=== PATIENT | female | born 1930 | race Caucasian/White ===

== ENCOUNTER 2021-01-21 10:24 | Inpatient (IN) | payer OTHER, MEDICARE ==
[2021-01-21 12:35] LABS: BASO % 0.2 % (0-2.0); EOS % 0.1 % (0-4.5); LYMPH % 5.8 % (8-40); MCHC 34.2 g/dl (32.0-36.0); MEAN CELL VOLUME 102.3 fl (80-96); MEAN PLT VOLUME 8.4 fl (7.5-11.1); MONO % 6.9 % (3.8-10.2); PLATELET COUNT 236 10^3/uL (134-434); RBC 3.13 M/mm3 (3.60-5.2); RDW 13.6 % (11.6-15.6); URINE APPEARANCE Clear; URINE BILIRUBIN Negative (NEGATIVE); URINE COLOR Yellow; URINE GLUCOSE (UA) Negative (NEGATIVE); URINE KETONE Negative (NEGATIVE); URINE LEUK ESTERASE Negative (NEGATIVE); URINE NITRITE Negative (NEGATIVE); URINE PROTEIN Trace (NEGATIVE); URINE UROBILINOGEN 0.2 mg/dL (0.2-1.0); WHITE BLOOD COUNT 9.8 K/mm3 (4.0-10.0)
[2021-01-21 12:52] LABS: ALBUMIN 3.2 g/dl (3.4-5.0); CALCIUM 9.7 mg/dL (8.5-10.1)
[2021-01-21 12:53] LABS: BLOOD UREA NITROGEN 33.1 mg/dL (7-18)
[2021-01-21 12:56] LABS: CREATININE 0.9 mg/dL (0.55-1.3)
[2021-01-21 12:57] LABS: BILIRUBIN,TOTAL 0.5 mg/dL (0.2-1); TOT PROT 7.5 g/dl (6.4-8.2)
[2021-01-21 13:01] LABS: N-TERMINAL BNP 1596.3 pg/ml (5-450)
[2021-01-21] MEDS ORDERED: LACTATED RINGERS SOLUTION 1,000 ML/1,000 ML INFUS.BAG IV STA (15:35)
[2021-01-21] MEDS ORDERED: D5-1/2NS+10 MEQ KCL - 10 MEQ/1,000 ML INFUS.BAG IV SCH (16:00)
[2021-01-21] MEDS: FUROSEMIDE 40 MG TABLET (FP) PO SCH (17:00)
[2021-01-21] MEDS: PANTOPRAZOLE 40 MG TABLET PO SCH (17:00)
[2021-01-21] MEDS ORDERED: FUROSEMIDE 40 MG TABLET (FP) ONE (17:13)
[2021-01-21] MEDS ORDERED: PANTOPRAZOLE 40 MG TABLET ONE (17:13)
[2021-01-21] MEDS: APIXABAN 2.5 MG TABLET PO SCH (21:44)
[2021-01-21] MEDS: POLYETHYLENE GLYCOL (HEALTHYLAX) 3350 17 GM PACKET PO SCH (21:46)
[2021-01-21] MEDS ORDERED: BACITRACIN 15 GM TUBE TOPICAL OINTMENT TP SCH (22:00)
[2021-01-22 01:39] VITALS: BMI 39.4
[2021-01-22 08:49] LABS: BASO % 0.4 % (0-2.0); EOS % 2.1 % (0-4.5); HEMATOCRIT 31.9 % (32.4-45.2); HEMOGLOBIN 10.7 GM/dL (10.7-15.3); LYMPH % 11.7 % (8-40); MCH 34.6 pg (25.7-33.7); MCHC 33.6 g/dl (32.0-36.0); MEAN PLT VOLUME 8.6 fl (7.5-11.1); MONO % 8.2 % (3.8-10.2); NEUT % 77.6 % (42.8-82.8); PLATELET COUNT 214 10^3/uL (134-434); RDW 13.8 % (11.6-15.6); WHITE BLOOD COUNT 7.3 K/mm3 (4.0-10.0)
[2021-01-22 09:01] LABS: CALCIUM 9.3 mg/dL (8.5-10.1)
[2021-01-22 09:05] LABS: CREATININE 0.8 mg/dL (0.55-1.3)
[2021-01-22] MEDS: PANTOPRAZOLE 40 MG TABLET PO SCH (09:21)
[2021-01-22] MEDS: POLYETHYLENE GLYCOL (HEALTHYLAX) 3350 17 GM PACKET PO SCH ×4 (09:21→21:45)
[2021-01-22] MEDS: APIXABAN 2.5 MG TABLET PO SCH (09:21)
[2021-01-22] MEDS: FUROSEMIDE 40 MG TABLET (FP) PO SCH (09:22)
[2021-01-22] MEDS: BACITRACIN 15 GM TUBE TOPICAL OINTMENT TP SCH (09:22)
[2021-01-22] MEDS ORDERED: IRON SUCROSE INJECTION 200 MG in SODIUM CHLORIDE 90 ML IVPB ONE (12:00)
[2021-01-22] MEDS ORDERED: PT OWN MED DRAWER 7, Y5N ONE ×3 (13:54→16:08)
[2021-01-22] MEDS: D5-1/2NS+10 MEQ KCL - 10 MEQ/1,000 ML INFUS.BAG IV SCH ×2 (16:19→23:40)
[2021-01-22] MEDS: CYANOCOBALAMIN 1,000 MCG TABLET (FP) PO SCH (16:19)
[2021-01-23] MEDS: POLYETHYLENE GLYCOL (HEALTHYLAX) 3350 17 GM PACKET PO SCH ×3 (06:09→21:35)
[2021-01-23 08:54] LABS: BASO % 0.5 % (0-2.0); EOS % 4.7 % (0-4.5); HEMATOCRIT 32.8 % (32.4-45.2); HEMOGLOBIN 11.1 GM/dL (10.7-15.3); LYMPH % 20.2 % (8-40); MCH 34.8 pg (25.7-33.7); MCHC 33.9 g/dl (32.0-36.0); MEAN CELL VOLUME 102.9 fl (80-96); MEAN PLT VOLUME 8.5 fl (7.5-11.1); MONO % 8.4 % (3.8-10.2); NEUT % 66.2 % (42.8-82.8); PLATELET COUNT 245 10^3/uL (134-434); RBC 3.19 M/mm3 (3.60-5.2); RDW 13.2 % (11.6-15.6); WHITE BLOOD COUNT 5.4 K/mm3 (4.0-10.0)
[2021-01-23] MEDS ORDERED: DEXTROSE 5%-0.45% SALINE 1,000 ML IV SCH ×3 (09:00→19:22)
[2021-01-23 09:23] LABS: BLOOD UREA NITROGEN 20.7 mg/dL (7-18); CALCIUM 9.3 mg/dL (8.5-10.1)
[2021-01-23 09:26] LABS: CREATININE 0.7 mg/dL (0.55-1.3)
[2021-01-23] MEDS ORDERED: PT OWN MED DRAWER 7, Y5N ONE (10:04)
[2021-01-23] MEDS: CYANOCOBALAMIN 1,000 MCG TABLET (FP) PO SCH (10:06)
[2021-01-23] MEDS: PANTOPRAZOLE 40 MG TABLET PO SCH (10:06)
[2021-01-23] MEDS: FUROSEMIDE 40 MG TABLET (FP) PO SCH (10:06)
[2021-01-23] MEDS: BACITRACIN 15 GM TUBE TOPICAL OINTMENT TP SCH (10:06)
[2021-01-23] MEDS ORDERED: ACETAMINOPHEN 1000 MG/100 ML VIAL (NON FORMULARY) IVPB ONE ×2 (10:12→13:15)
[2021-01-23] MEDS ORDERED: NEOSTIGMINE METHYLSULFATE 0.5 MG/1 ML - 10 ML MDV IVPUSH ONE ×2 (19:43)
[2021-01-24] MEDS ORDERED: NEOSTIGMINE METHYLSULFATE 0.5 MG/1 ML - 10 ML MDV IVPUSH ONE (06:10)
[2021-01-24] MEDS: POLYETHYLENE GLYCOL (HEALTHYLAX) 3350 17 GM PACKET PO SCH ×3 (06:11→23:13)
[2021-01-24 09:26] LABS: BASO % 0.5 % (0-2.0); EOS % 2.6 % (0-4.5); HEMATOCRIT 33.3 % (32.4-45.2); HEMOGLOBIN 11.2 GM/dL (10.7-15.3); LYMPH % 15.7 % (8-40); MCH 34.8 pg (25.7-33.7); MCHC 33.8 g/dl (32.0-36.0); MEAN CELL VOLUME 103.1 fl (80-96); MEAN PLT VOLUME 8.5 fl (7.5-11.1); MONO % 7.6 % (3.8-10.2); NEUT % 73.6 % (42.8-82.8); PLATELET COUNT 268 10^3/uL (134-434); RBC 3.23 M/mm3 (3.60-5.2); RDW 13.3 % (11.6-15.6); WHITE BLOOD COUNT 6.7 K/mm3 (4.0-10.0)
[2021-01-24 10:05] LABS: CALCIUM 9.4 mg/dL (8.5-10.1)
[2021-01-24 10:06] LABS: BLOOD UREA NITROGEN 18.7 mg/dL (7-18)
[2021-01-24 10:09] LABS: CREATININE 0.7 mg/dL (0.55-1.3)
[2021-01-24] MEDS ORDERED: PT OWN MED DRAWER 7, Y5N ONE (10:20)
[2021-01-24] MEDS: CYANOCOBALAMIN 1,000 MCG TABLET (FP) PO SCH (10:21)
[2021-01-24] MEDS: BACITRACIN 15 GM TUBE TOPICAL OINTMENT TP SCH (10:21)
[2021-01-24] MEDS: PANTOPRAZOLE 40 MG TABLET PO SCH (10:21)
[2021-01-24] MEDS: FUROSEMIDE 40 MG TABLET (FP) PO SCH (10:21)
[2021-01-24] MEDS ORDERED: D5-1/2NS+10 MEQ KCL - 10 MEQ/1,000 ML INFUS.BAG IV SCH (15:45)
[2021-01-24] MEDS: POTASSIUM CHLORIDE 10 MEQ in DEXTROSE 5%-NORMAL SALINE 1,000 ML IVPB SCH (18:52)
[2021-01-25] MEDS ORDERED: NEOSTIGMINE METHYLSULFATE 0.5 MG/1 ML - 10 ML MDV IVPUSH ONE ×2 (05:47→11:30)
[2021-01-25] MEDS: POLYETHYLENE GLYCOL (HEALTHYLAX) 3350 17 GM PACKET PO SCH ×3 (06:46→22:17)
[2021-01-25 08:19] LABS: BASO % 0.4 % (0-2.0); EOS % 2.1 % (0-4.5); HEMATOCRIT 34.5 % (32.4-45.2); HEMOGLOBIN 11.8 GM/dL (10.7-15.3); LYMPH % 18.7 % (8-40); MCH 35.1 pg (25.7-33.7); MCHC 34.2 g/dl (32.0-36.0); MEAN CELL VOLUME 102.6 fl (80-96); MEAN PLT VOLUME 8.4 fl (7.5-11.1); MONO % 9.2 % (3.8-10.2); NEUT % 69.6 % (42.8-82.8); PLATELET COUNT 263 10^3/uL (134-434); RBC 3.37 M/mm3 (3.60-5.2); RDW 13.2 % (11.6-15.6); WHITE BLOOD COUNT 6.5 K/mm3 (4.0-10.0)
[2021-01-25 08:46] LABS: CALCIUM 9.6 mg/dL (8.5-10.1)
[2021-01-25 08:47] LABS: BLOOD UREA NITROGEN 16.7 mg/dL (7-18)
[2021-01-25 08:50] LABS: CREATININE 0.8 mg/dL (0.55-1.3)
[2021-01-25] MEDS: PANTOPRAZOLE 40 MG TABLET PO SCH (11:25)
[2021-01-25] MEDS: BACITRACIN 15 GM TUBE TOPICAL OINTMENT TP SCH (11:26)
[2021-01-25] MEDS: FUROSEMIDE 40 MG TABLET (FP) PO SCH (11:26)
[2021-01-25] MEDS ORDERED: ATROPINE SULFATE 1 MG/10 ML DISP.SYRIN ONE (12:48)
[2021-01-25] MEDS: CYANOCOBALAMIN 1,000 MCG TABLET (FP) PO SCH (12:51)
[2021-01-25] MEDS ORDERED: POTASSIUM CHLORIDE 10 MEQ in DEXTROSE 5%-NORMAL SALINE 1,000 ML IVPB SCH (16:04)
[2021-01-25] MEDS: POTASSIUM CHLORIDE 10 MEQ in DEXTROSE 5%-NORMAL SALINE 1,000 ML IVPB SCH ×2 (17:25→18:34)
[2021-01-26] MEDS: POLYETHYLENE GLYCOL (HEALTHYLAX) 3350 17 GM PACKET PO SCH ×3 (06:39→22:34)
[2021-01-26 07:57] LABS: BASO % 0.7 % (0-2.0); EOS % 3.5 % (0-4.5); HEMATOCRIT 35.6 % (32.4-45.2); HEMOGLOBIN 11.9 GM/dL (10.7-15.3); LYMPH % 27.7 % (8-40); MCH 34.4 pg (25.7-33.7); MCHC 33.4 g/dl (32.0-36.0); MONO % 8.3 % (3.8-10.2); NEUT % 59.8 % (42.8-82.8); PLATELET COUNT 257 10^3/uL (134-434); RBC 3.45 M/mm3 (3.60-5.2); RDW 13.3 % (11.6-15.6); WHITE BLOOD COUNT 5.2 K/mm3 (4.0-10.0)
[2021-01-26 08:15] LABS: BLOOD UREA NITROGEN 12.6 mg/dL (7-18); CALCIUM 8.8 mg/dL (8.5-10.1); CREATININE 0.7 mg/dL (0.55-1.3)
[2021-01-26] MEDS: BACITRACIN 15 GM TUBE TOPICAL OINTMENT TP SCH (10:16)
[2021-01-26] MEDS: POTASSIUM CHLORIDE TABS 20 MEQ TABLET.ER (FP) PO SCH (10:16)
[2021-01-26] MEDS: FUROSEMIDE 40 MG TABLET (FP) PO SCH ×3 (10:16→10:35)
[2021-01-26] MEDS: PANTOPRAZOLE 40 MG TABLET PO SCH (10:16)
[2021-01-26] MEDS: POTASSIUM CHLORIDE 10 MEQ in DEXTROSE 5%-NORMAL SALINE 1,000 ML IVPB SCH ×2 (10:17→12:29)
[2021-01-26] MEDS: CYANOCOBALAMIN 1,000 MCG TABLET (FP) PO SCH (10:17)
[2021-01-26] MEDS: FERROUS SO4 325 MG TABLET (FP) PO SCH ×2 (12:19→17:49)
[2021-01-26] MEDS ORDERED: NEOSTIGMINE METHYLSULFATE 0.5 MG/1 ML - 10 ML MDV IVPUSH ONE ×3 (15:27)
[2021-01-27] MEDS ORDERED: ALBUTEROL SO4 2.5/IPRATROPIUM 0.5 INH SOL 3 ML VIAL.NEB. NEB ONE (03:10)
[2021-01-27 07:43] LABS: BLOOD UREA NITROGEN 11.1 mg/dL (7-18); CALCIUM 8.7 mg/dL (8.5-10.1); MAGNESIUM 1.5 mg/dL (1.8-2.4)
[2021-01-27 07:47] LABS: CREATININE 0.7 mg/dL (0.55-1.3); PHOSPHOROUS 2.8 mg/dL (2.5-4.9)
[2021-01-27 08:07] LABS: BASO % 0.7 % (0-2.0); EOS % 3.4 % (0-4.5); HEMOGLOBIN 11.7 GM/dL (10.7-15.3); LYMPH % 33.6 % (8-40); MCH 34.5 pg (25.7-33.7); MCHC 33.4 g/dl (32.0-36.0); MEAN CELL VOLUME 103.2 fl (80-96); MEAN PLT VOLUME 7.8 fl (7.5-11.1); MONO % 7.7 % (3.8-10.2); NEUT % 54.6 % (42.8-82.8); PLATELET COUNT 258 10^3/uL (134-434); RBC 3.39 M/mm3 (3.60-5.2); RDW 13.2 % (11.6-15.6); WHITE BLOOD COUNT 5.6 K/mm3 (4.0-10.0)
[2021-01-27] MEDS ORDERED: MAGNESIUM SULF 50% (8.12 MEQ/2 ML-1 GM VIAL) IVPB ONE (08:54)
[2021-01-27] MEDS: POLYETHYLENE GLYCOL (HEALTHYLAX) 3350 17 GM PACKET PO SCH ×4 (09:08→22:31)
[2021-01-27] MEDS: CYANOCOBALAMIN 1,000 MCG TABLET (FP) PO SCH (09:59)
[2021-01-27] MEDS: FERROUS SO4 325 MG TABLET (FP) PO SCH ×3 (09:59→17:19)
[2021-01-27] MEDS: POTASSIUM CHLORIDE TABS 20 MEQ TABLET.ER (FP) PO SCH (09:59)
[2021-01-27] MEDS: FUROSEMIDE 40 MG TABLET (FP) PO SCH (09:59)
[2021-01-27] MEDS: PANTOPRAZOLE 40 MG TABLET PO SCH (09:59)
[2021-01-27] MEDS: POTASSIUM CHLORIDE 10 MEQ in DEXTROSE 5%-NORMAL SALINE 1,000 ML IVPB SCH ×2 (10:00→16:36)
[2021-01-27] MEDS: BACITRACIN 15 GM TUBE TOPICAL OINTMENT TP SCH (12:25)
[2021-01-28] MEDS: POTASSIUM CHLORIDE 10 MEQ in DEXTROSE 5%-NORMAL SALINE 1,000 ML IVPB SCH (09:28)
[2021-01-28] MEDS: POLYETHYLENE GLYCOL (HEALTHYLAX) 3350 17 GM PACKET PO SCH ×2 (09:29→21:03)
[2021-01-28] MEDS: FUROSEMIDE 40 MG TABLET (FP) PO SCH (09:29)
[2021-01-28] MEDS: PANTOPRAZOLE 40 MG TABLET PO SCH (09:29)
[2021-01-28] MEDS: CYANOCOBALAMIN 1,000 MCG TABLET (FP) PO SCH (09:29)
[2021-01-28] MEDS: BACITRACIN 15 GM TUBE TOPICAL OINTMENT TP SCH (09:29)
[2021-01-28] MEDS: POTASSIUM CHLORIDE TABS 20 MEQ TABLET.ER (FP) PO SCH (09:29)
[2021-01-28] MEDS: FERROUS SO4 325 MG TABLET (FP) PO SCH ×3 (09:29→16:52)
[2021-01-28 10:18] LABS: BLOOD UREA NITROGEN 13.2 mg/dL (7-18); CALCIUM 8.7 mg/dL (8.5-10.1); CREATININE 0.6 mg/dL (0.55-1.3); MAGNESIUM 1.6 mg/dL (1.8-2.4)
[2021-01-28] MEDS ORDERED: MAGNESIUM SULF 50% (8.12 MEQ/2 ML-1 GM VIAL) IVPB ONE (13:15)
[2021-01-28] MEDS: NYSTATIN POWDER 100,000 UNITS/GM - 15 GM TOPICAL POWDER TP SCH (21:03)
[2021-01-29] MEDS: NYSTATIN POWDER 100,000 UNITS/GM - 15 GM TOPICAL POWDER TP SCH (05:13)
[2021-01-29] MEDS: POTASSIUM CHLORIDE 10 MEQ in DEXTROSE 5%-NORMAL SALINE 1,000 ML IVPB SCH (05:13)
[2021-01-29 06:57] VITALS: BP 129/77; PULSE 63; TEMP 98.1
[2021-01-29] MEDS: POTASSIUM CHLORIDE TABS 20 MEQ TABLET.ER (FP) PO SCH (09:11)
[2021-01-29] MEDS: PANTOPRAZOLE 40 MG TABLET PO SCH (09:11)
[2021-01-29] MEDS: BACITRACIN 15 GM TUBE TOPICAL OINTMENT TP SCH (09:11)
[2021-01-29] MEDS: FUROSEMIDE 40 MG TABLET (FP) PO SCH (09:11)
[2021-01-29] MEDS: POLYETHYLENE GLYCOL (HEALTHYLAX) 3350 17 GM PACKET PO SCH (09:11)
[2021-01-29] MEDS: FERROUS SO4 325 MG TABLET (FP) PO SCH (09:11)
[2021-01-29] MEDS: CYANOCOBALAMIN 1,000 MCG TABLET (FP) PO SCH (09:12)
== END 2021-01-29 12:00 | DRG 389 ==
LOC: JER 10:24 → JERBED 15:55 → J6S 18:52 → J4W 01-24 17:59 → JICU 01-25 09:50 → J8W 01-25 17:43 → J2W 01-26 23:59 → JICU 01-27 00:36 → J8W 01-27 07:54
PROVIDERS: ADMIT Internal Medicine; ATTEND Internal Medicine
DX: K56.41 Fecal impaction (principal); C90.00 Multiple myeloma not having achieved remission; E87.1 Hypo-osmolality and hyponatremia; Z68.41 Body mass index [BMI] 40.0-44.9, adult; I50.32 Chronic diastolic (congestive) heart failure; K52.89 Other specified noninfective gastroenteritis and colitis; I11.0 Hypertensive heart disease with heart failure; E78.5 Hyperlipidemia, unspecified; I48.91 Unspecified atrial fibrillation; D50.9 Iron deficiency anemia, unspecified; R45.1 Restlessness and agitation; K59.89 Other specified functional intestinal disorders; K59.81 Ogilvie syndrome; K57.90 Diverticulosis of intestine, part unspecified, without perforation or abscess without bleeding; K44.9 Diaphragmatic hernia without obstruction or gangrene; K21.9 Gastro-esophageal reflux disease without esophagitis; R14.0 Abdominal distension (gaseous); E83.42 Hypomagnesemia; R26.2 Difficulty in walking, not elsewhere classified; R60.0 Localized edema; I08.3 Combined rheumatic disorders of mitral, aortic and tricuspid valves; R79.89 Other specified abnormal findings of blood chemistry; E88.09 Other disorders of plasma-protein metabolism, not elsewhere classified; R94.31 Abnormal electrocardiogram [ECG] [EKG]; E66.01 Morbid (severe) obesity due to excess calories; Z96.643 Presence of artificial hip joint, bilateral
CPT/HCPCS: 36415; 71045-TC-FY; 74018-TC-FY; 74177-TC; 80048; 80053; 81003; 82272; 82607; 82728; 83540; 83550; 83605; 83690; 83735; 83880; 84100; 85025; 87086; 93005; 93010; 93306-TC; 97116-GP; 97161-GP; 99285-25; C9803; J0131; J1756; Q9967; U0003; U0005